=== PATIENT | male | born 1975 | race Caucasian/White ===

== ENCOUNTER 2020-12-01 13:30 | Outpatient (CLI) | payer BC ==
[2020-12-01] VITALS (9 sets, daily range): BP systolic 123–138; BP diastolic 78–96; PULSE 86–95; TEMP 96.4–98.8
[~2020-12-01] VITALS: Ht 182.9 cm; Wt 104.0 kg
[2020-12-01] MEDS ORDERED: PRILOSEC 20MG20 MG PO (13:51)
== END 2020-12-05 14:14 | disposition home or self-care (01) ==
LOC: EUO 13:30
DX: U07.1 COVID-19 (principal); I35.0 Nonrheumatic aortic (valve) stenosis
CPT/HCPCS: J7050

== ENCOUNTER 2021-11-08 10:58 | Outpatient (CLI) | payer BC ==
[~2021-11-08] VITALS: Ht 182.9 cm; Wt 113.0 kg
[~2021-11-08 10:58] MED LIST: PRILOSEC 20MG20 MG PO
[2021-11-08] MEDS ORDERED: TRICOR145 MG PO (12:10)
[2021-11-08 13:00] VITALS: BP 142/90; PULSE 72; TEMP 98.3
== END 2021-11-08 16:40 | disposition home or self-care (01) ==
LOC: COL.RAD 10:58
DX: K76.0 Fatty (change of) liver, not elsewhere classified (principal); I77.810 Thoracic aortic ectasia
CPT/HCPCS: J7040; Q9967

== ENCOUNTER 2021-11-22 06:46 | Outpatient (CLI) | payer BC ==
[~2021-11-22] VITALS: Ht 183 cm; Wt 113.5 kg
[~2021-11-22 06:46] MED LIST changes: +TRICOR145 MG PO
[2021-11-22 07:35] VITALS: BP 156/94; PULSE 78
[2021-11-22 07:37] LABS: HEMOGLOBIN 14.4 g/dl (13.5-18.0); MEAN CELL VOLUME 76 fl (80.0-100.0); MEAN CORPUSCULAR HEMOGLOBIN 25 pg (27-31); MEAN CORPUSCULAR HGB CONC 33 g/dl (33.0-37.0); MEAN PLATELET VOLUME 9.4 fl (7.4-10.4); PLATELET COUNT 303 K/mm3 (130-400); RED BLOOD COUNT 5.82 M/mm3 (4.20-5.60); REDCELL DISTRIBUTION WIDTH-CV 19.6 % (11.5-14.5)
[2021-11-22 07:54] LABS: CALCIUM 9.2 mg/dL (8.4-10.2); CREATININE, serum 1.39 mg/dL (0.72-1.25); POTASSIUM 4.2 mmol/L (3.5-4.5)
[2021-11-22 07:55] LABS: INR 1.1 (0.8-3.0); PROTHROMBIN TIME 12.3 SECONDS (9.7-12.8)
[2021-11-22 09:15] VITALS: BP 123/81; PULSE 73
[2021-11-22 09:35] VITALS: BP 135/96; BP 178/79; PULSE 65; PULSE 73
[2021-11-22 09:45] VITALS: BP 135/96; BP 167/67; PULSE 68; PULSE 73
[2021-11-22 10:00] VITALS: BP 158/70; PULSE 65
[2021-11-22] MEDS ORDERED: ZIAC 2.5/6.25MG1 TAB PO (10:10)
--- NOTE | 2021-11-22 10:42 | NUR ---
Discharge instructions given to pt.Pt verbalizes understanding.INT removed,catheter tip intact.Pt escorted out via wheelchair.
== END 2021-11-22 10:46 ==
LOC: COL.RAD 06:46
PROVIDERS: Internal Medicine Cardiovascular Disease
DX: I35.1 Nonrheumatic aortic (valve) insufficiency (principal)
CPT/HCPCS: J2704